=== PATIENT | male | born 1990 | race Caucasian/White ===

== ENCOUNTER 2017-08-10 04:23 | Emergency (ER) | payer OTHER ==
[~2017-08-10] VITALS: Ht 182.9 cm; Wt 108.9 kg
[2017-08-10 05:01] LABS: HEMOGLOBIN 14.4 g/dL (14.1-18.0); LYMPH # 1.1 K/mm3 (0.7-4.5); LYMPH % 24.4 % (10-50)
[2017-08-10 06:01] LABS: URINE BILIRUBIN - DIPSTICK NEGATIVE (NEG); URINE BLOOD NEGATIVE (NEG)
--- NOTE | 2017-08-10 06:12 | Emergency Room Report ---
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 N Clinical Suspician of Infection? N Mental Status: 1 - Regular (Normal Baseline) Sepsis Risk:Low Sepsis Risk Have you (or family members/close friends) recently traveled outside the [place]? N If Yes, where/when: Have you had exposure to infectious disease within the past month? N TB? Other? Specify: Source patient, RN notes reviewed, family, old records Exam Limitations no limitations Comment rt upper abd pain with nausea over the last few days - Cardiac Chest Pain Chest pain indicative of cardiac No Timing/Duration this evening Severity moderate ALLERGIES Coded Allergies: No Known Allergies (08/10/17) Home Medications Reported Medications No Known Home Medications History Medical History General CAD? No Angina: No ND: No Hypertension? No Hyperlipidemia? No CHF? No DVT? No PE? No COPD? No Asthma? No Anemia? No GERD? No Gastric ulcers? No GI Bleed? No Hernia? No Thyroid Problems? No Hypothyroidism? No CVA? No Seizures? No Diabetes? No Renal Insuffiency? No End Stage Renal Disease? No UTI? No Stones? No BPH? No GB Disease: No Nephritic Syndrome? No Asplenia? No Hepatitis? No Sickle Cell Disease? No Arthritis? No Migraines? No Cataracts? No Glaucoma? No MRSA? No HIV? No TB? No Anxiety? No Depression? No Cancer? No More? No Immunization Hx DT/Tetanus Unknown Surgical Hx Previous Surgery?N Social History Smoking Hx Smoker: Never Smoker Tobacco: No Type Chew Alcohol Alcohol: No Drugs none Additionial History Additional History also lt testicular pain Review of Systems All Other Systems Reviewed and Negative Constitutional denies fever Eyes denies blurred vision ENT denies: ear pain, epistaxis, throat pain. Respiratory denies cough, denies shortness of breath, denies wheezing Cardiovascular denies chest pain, denies palpitations, denies syncope Gastrointestinal see HPI, abdominal pain, denies diarrhea, nausea, vomiting Genitourinary denies: dysuria, frequency, hesitancy, hematuria. Musculoskeletal denies back pain, denies joint pain, denies joint swelling, denies neck pain Skin denies rash Psychiatric/Neurological denies headache, denies seizure Physical Exam Vital Signs Vital Signs Date Time Temp Pulse Resp B/P Pulse O2 O2 Flow FiO2 Ox Delivery Rate 08/10 443 18 08/10 431 98.0 74 18 115/62 97 - WBC >12,000 or <4,000 or 10% bands? 2 or more SIRS Criteria Met? B/P:115/62 MAP:79 Creatinine >2.0? UA output<0.5ml/kg/hr for 2 hrs? Platelet count >100,000? Lactate >2.0mmol/1? INR >1.2 or PTT > than 60 sec? Evidence of Organ Dysfunction? Provider documented clinical suspician of infection? N Sepsis Criteria Count: 0 Sepsis Risk: Low Sepsis Risk General Appearance no apparent distress Eye Exam - bilateral eye PERRL, bilateral eye EOMI Ear, Nose, Throat normal ENT inspection Neck supple Respiratory Status No: respiratory distress. 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 No Results/Orders Laboratory Tests 08/10/17 0540: Urine Color DK YELLOW, Urine Appearance CLEAR, Urine pH 6.0, Ur Specific [place] >= 1.030, Urine Protein NEGATIVE, Urine Ketones NEGATIVE, Urine Blood NEGATIVE, Urine Nitrate NEGATIVE, Urine Bilirubin NEGATIVE, Urine Urobilinogen 2.0, Ur Leukocyte Esterase NEGATIVE, Urine WBC OCC, Urine Bacteria 2+, Urine Mucus 4+, Urine Glucose NEGATIVE 08/10/17 0440: Sodium 138, Potassium 4.1, Chloride 104, Carbon Dioxide 27, BUN 16, Creatinine 1.2, Estimated Creat Clear 144, Estimated GFR (MDRD) 73, Glucose 99, Calcium 8.6 , Total Bilirubin 0.5, AST 20, ALT 19, Alkaline Phosphatase 85, Total Protein 7.2, Albumin 3.9, Globulin 3.3 H, Albumin/Globulin Ratio 1.2, Amylase 40, Lipase 144, WBC 4.4 L, RBC 5.01, Hgb 14.4, Hct 43.4, MCV 86.7, RDW 11.9, Plt Count 120 L, MPV 9.3, Gran % 61.2, Gran # 2.7, Lymphocytes % 24.4, Monocytes % 9.5 H, Eosinophils % 4.4, Basophils % 0.4, Lymphocytes # 1.1, Monocytes # 0.4, Eosinophils # 0.2, Basophils # 0.0, PUBS MCHC 33.2, MCH 28.7 Current Medication Orders Sig/Frantz Start time Last Medication Dose Route Stop Time Status Admin Ketorolac 30 MG ONCE ONE 08/10 445 DC 08/10 Tromethamine IV 08/10 Ketorolac 0 .STK-MED ONE 08/10 438 DC Tromethamine .ROUTE Sodium Chloride 10 ML PRN PRN 08/10 430 AC IV 08/11 430 Orders Procedure Date/time Status DIET-NOTHING BY MOUTH 08/10 B Active CULTURE, URINE 08/[address] ABD & PELVIS W/O CONTRAST 08/[address] SCAN REQ 08/10 431 Active IV SALINE LOCK 08/10 431 Active URINALYSIS/COMPLETE 08/10 431 Complete LIPASE 08/10 431 Complete COMPLETE METABOLIC PANEL 08/10 431 Complete CBC WITH AUTO DIFF 08/10 431 Complete AMYLASE 08/10 431 Complete XRAY/CT/US XRAY/CT/US CT abdomen, pelvis CT interpretation by discussed w/radiologist Time results known: 06 CT Results abnormal (see report) Departure Departure Time of Disposition 06 Disposition DC Home or Self Care(routine) Clinical Impression Primary Impression: Abdominal pain Qualifiers: Abdominal location: right upper quadrant Qualified Code: R10.11 - Right upper quadrant pain Secondary Impressions: Cholelithiasis Qualifiers: Cholelithiasis location: gallbladder Cholecystitis presence: without cholecystitis Biliary obstruction: without biliary obstruction Qualified Code: K80.20 - Calculus of gallbladder without cholecystitis without obstruction Testicle tenderness Condition STABLE Referrals MICHELLE MAGAÑA (Family) Patient Instructions DI for Gallbladder or Biliary Tubes Additional Instructions call pcp for gb u/s and scrotal u/s nino Discharge Counseling Counseled pt/family regarding diagnosis, test results, medications/RX, follow up needs Prescriptions Current Visit Scripts No Known Home Medications ED Critical Care Critical Care No at 0623
[2017-08-10 06:37] VITALS: BP 115/62
--- NOTE | 2017-08-10 09:06 | RADIOLOGY REPORT PS360 ---
CT ABD PELVIS W/O CONTRAST COMPARISON: None HISTORY: Right flank pain TECHNIQUE: Multiaxial scans obtained from hemidiaphragms the pelvic floor and were performed without IV or oral contrast. Sagittal coronal reformats were evaluated as well. FINDINGS: The lower lung martinez are clear. The liver spleen stomach and pancreas appear grossly normal. The gallbladder is normal in size and there is a subtle pericholecystic haziness noted. There appears be very tiny 1 mm or less calculus within the cystic duct or proximal common bile duct. There is no intrahepatic ductal dilatation. The adrenal glands are normal. The kidneys are normal size and there are no calculi and is no obstructive uropathy. Small bowel is normal. The appendix is well-seen and is normal. There is scattered stool in ascending and transverse and sigmoid colon. The urinary bladder prostate appear normal. IMPRESSION: Early acute cholecystitis with possible tiny calculus in the cystic duct or proximal common bile duct and suggest consideration of a follow-up ultrasound right upper quadrant for additional evaluation. Agree with the [facility] report
--- OUTSIDE RECORDS SUMMARY | 2017-08-15 17:59 | External Medical Summary Rpt | CCD ---
Author Author , CRYSTAL ROJAS Address Unknown Phone [email or web address] Care Team Providers Care Office Clinician Name Role Phone [facility] Unavailable Unavailable [facility], [facility] Honorio ACOSTA, Honorio ACOSTA Unavailable Unavailable T MICHELLE MAGAÑA, Unavailable Unavailable MICHELLE MAGAÑA [facility], Unavailable Unavailable [facility] Purpose Continuity of Care Document - 02-17-2009 through 2016 Problems Code Diagnosis DOS Provider Status 7821 RASH AND 06-01-2010 [facility] OTHER MEDICAL NONSPECIFIC CLINIC SKIN ERUPTION 12299 PAIN IN 03-28-2009 [facility] JOINT, RADIOLOGY ANKLE AND FOOT 7295 PAIN IN 03-28-2009 [facility] SOFT RADIOLOGY TISSUES OF LIMB 462 ACUTE 02-17-2009 [facility]IS [facility]IC Medications Na ND Rx Da Fi Fi Am Da Di Ph RX Ph St me C No te ll ll ou ys ag ar # ys at rm s nt no ma ic us Or Da si cy ia de te s n re d ME 68 05 06 65 GR Ac LO 18 -2 -0 .0 E 48 EE ti XI 00 6- 4- 00 ME 47 N ve CA 50 20 20 DI 3 JE M 10 09 09 CI FF 7. 1 NE RE 5 Y MG SH J OP TA PE BL ET AM 00 65 GR Ac OX 78 -1 -2 .0 E 45 EE ti IC 12 7- 3- 00 ME 97 N ve IL 61 20 20 DI 6 JE LI 30 09 09 CI FF N 5 NE RE 50 Y 0 SH J MG OP PE CA PS UL E Procedures Procedure DOS Code Location Performer Comment THERAPEUT 38850 PIPPA MAGAÑA IC 0 MEDICAL MICHELLE Bella PROPHYLAC CLINIC TIC/DX INJECTION SUBQ/IM RADEX 90525 [facility] FOOT 9 [facility] MINIMUM 3 VIEWS RADEX 75102 [facility] ANKLE [address] [address] MINIMUM 3 VIEWS IAADIADOO 29485 [facility], 9 MEDICAL MICHELLE Bella [facility] Encounters Encounter Start End Date Code Location Performer Type Date OFFICE 33008 [facility], OUTPATIEN 0 0 MEDICAL MICHELLE Bella T [facility] 15 MINUTES OFFICE 11617 [facility], [facility] 9 9 [facility] [address] [facility] 9 9 [facility] OFFICE 30986 [facility], OUTPATIEN 9 9 MEDICAL MICHELLE Bella V[facility] CLINIC 15 MINUTES
--- OUTSIDE RECORDS SUMMARY | 2017-08-15 17:59 | External Medical Summary Rpt | CCD ---
Author Author , CRYSTAL ROJAS Address Unknown Phone [email or web address] Care Team Providers Care Remote Operations Producer Name Role Phone [facility] Unavailable Unavailable [facility]PITAL, [facility] Honorio ACOSTA, Honorio ACOSTA Unavailable Unavailable T MICHELLE MAGAÑA, Unavailable Unavailable MICHELLE MAGAÑA [facility], Unavailable Unavailable [facility] Purpose Continuity of Care Document - 02-17-2009 through 2016 Problems Code Diagnosis DOS Provider Status 7821 RASH AND 06-01-2010 [facility] OTHER MEDICAL NONSPECIFIC CLINIC SKIN ERUPTION 65859 PAIN IN 03-28-2009 [facility] JOINT, RADIOLOGY ANKLE AND FOOT 7295 PAIN IN 03-28-2009 [facility] SOFT RADIOLOGY TISSUES OF LIMB 462 ACUTE 02-17-2009 [facility]NGITIS [facility]ICAL CLINIC Medications Na ND Rx Da Fi Fi Am Da Di Ph RX Ph St me C No te ll ll ou ys ag ar # ys at rm s nt no ma ic us Or Da si cy ia de te s n re d ME 68 05 06 00 65 GR Ac LO 18 -2 -0 [...] Procedure DOS Code Location Performer Comment THERAPEUT 15757 PIP[facility] MAGAÑA IC 0 MEDICAL MICHELLE Bella PROPHYLAC CLINIC TIC/DX INJECTION SUBQ/IM RADEX 99373 [facility] FOOT [address] [place] [address] MINIMUM 3 VIEWS RADEX 23534 [facility] ANKLE [address] [place] [address] MINIMUM 3 VIEWS IAADIADOO 45676 [facility], 9 [facility] Encounters Encounter Start End Date Code Location Performer Type Date OFFICE 67123 PIPPA MAGAÑA, OUTPATIEN 0 0 ROBI [facility]ISIT [facility]INIC [address] [facility] - 9 9 [facility] OFFICE 01166 PIPPA MAGAÑA OUTPATIEN 9 9 MEDICAL MICHELLE Chi VISIT CLINIC 15 MINUTES OFFICE 94685 [facility]AÑA, OUTPATIEN 9 9 MEDICAL MICHELLE Chi VISIT CLINIC 15 MINUTES
--- OUTSIDE RECORDS SUMMARY | 2017-08-15 17:59 | External Medical Summary Rpt | CCD ---
Author Author , CRYSTAL ROJAS Address Unknown Phone 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 Software Engineer Name Role Phone [facility] Unavailable Unavailable [facility], [facility] Honorio ACOSTA, Honorio ACOSTA Unavailable Unavailable T MICHELLE MAGAÑA, Unavailable Unavailable MICHELLE MAGAÑA [facility], Unavailable Unavailable [facility] Purpose Continuity of Care Document - 02-17-2009 through 2016 Problems Code Diagnosis DOS Provider Status 7821 RASH AND 06-01-2010 [facility] OTHER MEDICAL NONSPECIFIC CLINIC SKIN ERUPTION 69638 PAIN IN 03-28-2009 [facility] JOINT, RADIOLOGY ANKLE AND FOOT 7295 PAIN IN 03-28-2009 [facility] SOFT RADIOLOGY TISSUES OF LIMB 462 ACUTE 02-17-2009 [facility] PHARYNGITIS MEDICAL CLINIC Medications Na ND Rx [...] Procedure DOS Code Location Performer Comment THERAPEUT 77622 PIPPA MAGAÑA IC 0 MEDICAL MICHELLE Bella PROPHYLAC CLINIC TIC/DX INJECTION SUBQ/IM RADEX 10718 [facility] FOOT 9 [facility] MINIMUM 3 VIEWS RADEX 17519 [facility] ANKLE [address] [place] [address] MINIMUM 3 VIEWS IAADIADOO 52060 [facility], 9 MEDICAL MICHELLE Bella [facility] Encounters Encounter Start End Date Code Location Performer Type Date OFFICE 82035 [facility], OUTPATIEN 0 0 MEDICAL MICHELLE Bella T VISIT CLINIC 15 MINUTES OFFICE 15024 [facility], [facility]IEN 9 9 [facility] 15 MINUTES [facility] 9 9 [facility] OFFICE 84152 [facility], OUTPATIEN 9 9 MEDICAL MICHELLE Bella VISIT CLINIC 15 MINUTES
--- OUTSIDE RECORDS SUMMARY | 2017-08-15 17:59 | External Medical Summary Rpt | CCD ---
Author Author , CRYSTAL ROJAS Address Unknown Phone [email or web address] Immunization Name Date Rout CVX Reac Dose Comm Prov Is Faci e tion ent ider Refu lity Give sed n Td 06-0 9 999 Hist H109 No H109 (pilar 6-20 ori lt), 05 al Info adso rmat rbed ion - Sour ce Unsp ecif ied Hep 06-0 8 999 Hist H109 No H109 B, 1-19 ori ped/ 98 al adol Info rmat ion - Sour ce Unsp ecif ied Hep 11-2 8 999 Hist H109 No H109 B, 1-19 ori ped/ 97 al adol Info rmat ion - Sour ce Unsp ecif ied Hep 10-1 8 999 Hist H109 No H109 B, 6-19 ori ped/ 97 al adol Info rmat ion - Sour ce Unsp ecif ied MMR 03-2 3 999 Hist H109 No H109 5-19 oric 96 al Info rmat ion - Sour ce Unsp ecif ied
--- OUTSIDE RECORDS SUMMARY | 2017-08-15 17:59 | External Medical Summary Rpt | CCD ---
Author Author , CRYSTAL ROJAS Address Unknown Phone [email or web address] Care Team Providers Care Brazer Helper Induction Name Role Phone [facility] Unavailable Unavailable [facility], [facility] Honorio ACOSTA, Honorio ACOSTA Unavailable Unavailable T MICHELLE MAGAÑA, Unavailable Unavailable MICHELLE MAGAÑA [facility], Unavailable Unavailable [facility] Purpose Continuity of Care Document - 02-17-2009 through 2016 Problems Code Diagnosis DOS Provider Status 7821 RASH AND 06-01-2010 [facility] OTHER MEDICAL NONSPECIFIC CLINIC SKIN ERUPTION 92253 PAIN IN 03-28-2009 [facility] JOINT, RADIOLOGY ANKLE AND FOOT 7295 PAIN IN 03-28-2009 [facility] SOFT RADIOLOGY TISSUES OF LIMB 462 ACUTE 02-17-2009 [facility] PHARYNGITIS MEDICAL CLINIC Medications Na ND [...] Procedure DOS Code Location Performer Comment THERAPEUT 55619 PIP[facility] MAGAÑA IC 0 MEDICAL MICHELLE Bella PROPHYLAC CLINIC TIC/DX INJECTION SUBQ/IM RADEX 45241 [facility] FOOT [address] [place] [address] MINIMUM 3 VIEWS RADEX 04544 [facility] ANKLE [address] [place] [address] MINIMUM 3 VIEWS IAADIADOO 98013 [facility], 9 MEDICAL [facility]LE Bella [facility] Encounters Encounter Start End Date Code Location Performer Type Date OFFICE 85082 PIPPA MAGAÑA, OUTPATIEN 0 0 ROBI Chi VISIT CLINIC 15 MINUTES [facility] - 9 9 [facility] OFFICE 55201 PIPPA MAGAÑA OUTPATIEN 9 9 MEDICAL MICHELLE Chi VISIT CLINIC 15 MINUTES OFFICE 94168 BLUEADWOA MAGAÑA, OUTPATIEN 9 9 MEDICAL MICHELLE Chi VISIT CLINIC 15 MINUTES
--- OUTSIDE RECORDS SUMMARY | 2017-08-15 17:59 | External Medical Summary Rpt | CCD ---
Author Author , CRYSTAL ROJAS Address Unknown Phone [email or web address] Immunization Name Date Rout CVX Reac Dose [...]
--- OUTSIDE RECORDS SUMMARY | 2017-08-15 17:59 | External Medical Summary Rpt ---
Author Author CRYSTAL Nieves, [employer] Address Unknown Phone Unavailable
== END 2017-08-10 06:38 | disposition home or self-care (01) ==
LOC: ER 04:23
PROVIDERS: Emergency Medicine
DX: K80.20 Calculus of gallbladder without cholecystitis without obstruction (principal); R10.11 Right upper quadrant pain